=== PATIENT | female | born 1985 | race Caucasian/White ===

== ENCOUNTER 2021-06-25 10:13 | Outpatient (CLI) | payer BC ==
[2021-06-25] MEDS ORDERED: ALBU18HF INH (10:39)
[2021-06-25] MEDS ORDERED: [UNRECOGNIZED DRUG - CODE] PO (10:39)
[2021-06-25] MEDS ORDERED: MONT10TA6 PO (10:39)
[2021-06-25 11:15] LABS: MICROSCOPIC AUTO
[2021-06-25 11:22] LABS: BASOPHILS % (AUTO) 1 % (0-1); EOSINOPHILS % (AUTO) 7 % (1-7); LYMPHOCYTES % (AUTO) 23 % (22-44); MEAN CORPUSCULAR HEMOGLOBIN 31.4 pg (27.0-34.8); MEAN PLATELET VOLUME 7.6 fL (7.4-10.4); MONOCYTES % (AUTO) 6 % (2-9); NEUTROPHILS % (AUTO) 63 % (42-75); PLATELET COUNT 300 x10^3/uL (130-400); RED BLOOD COUNT 5.19 x10^6/uL (3.82-5.3); RED CELL DISTRIBUTION WIDTH 13.2 % (9.6-15.2)
[2021-06-25 11:33] LABS: CHLORIDE 108 mmol/L (98-107)
[2021-06-25 12:23] LABS: ALANINE AMINOTRANSFERASE 16 U/L (12-78); ALBUMIN 3.8 g/dL (3.4-5.0); ALKALINE PHOSPHATASE 79 U/L (45-117); ANION GAP 8 mmol/L (5-15); BILIRUBIN,TOTAL 0.8 mg/dL (0.2-1.0); CALCIUM 9.2 mg/dL (8.5-10.1); CREATININE 0.66 mg/dL (0.55-1.02); TOTAL PROTEIN 7.7 g/dL (6.4-8.2)
== END 2021-06-25 23:59 | disposition home or self-care (01) ==
LOC: STAR 10:13
PROVIDERS: ATTEND Obstetrics & Gynecology Gynecology
DX: Z01.818 Encounter for other preprocedural examination (principal)
CPT/HCPCS: 36415; 80053; 81001; 84702; 85025; 87077; 87086; 87186

== ENCOUNTER 2021-07-02 11:32 | Day surgery (SDC) | payer BC ==
[~2021-07-02] VITALS: Ht 158.8 cm; Wt 85.7 kg
[~2021-07-02 11:32] MED LIST: ALBU18HF INH; MONT10TA6 PO; [UNRECOGNIZED DRUG - CODE] PO
[2021-07-02 12:21] VITALS: BP 152/94
[2021-07-02] MEDS ORDERED: CHLORHEXIDINE 15 ML UDC ONE (12:25)
[2021-07-02 12:29] LABS: HCG UR SG 1.008 (1.003-1.030)
[2021-07-02] MEDS ORDERED: CHLORHEXIDINE 15 ML UDC PO ONE (12:30)
[2021-07-02] MEDS ORDERED: LACTATED RINGERS 1,000 ML IV SCH (12:30)
[2021-07-02] MEDS ORDERED: BUPIVACAINE/PF 0.25% ONE (12:46)
[2021-07-02] MEDS ORDERED: EPINEPHRINE 1 MG/ML, 1ML ONE (12:46)
[2021-07-02] MEDS ORDERED: SILVER NITRATE STICK TP ONE (12:46)
[2021-07-02] MEDS ORDERED: PROPOFOL 10 MG/ML, 20ML ONE (13:01)
[2021-07-02] MEDS ORDERED: SUCCINYLCHOLINE 20 MG/ML, 10ML ONE (13:02)
[2021-07-02] MEDS ORDERED: LIDOCAINE-MPF 2% ,5ML ONE (13:02)
[2021-07-02] MEDS ORDERED: ONDANSETRON 2MG/ML, 2ML ONE (13:20)
[2021-07-02] MEDS ORDERED: DEXAMETHASONE 4 MG/ML, 1ML ONE (13:20)
[2021-07-02] MEDS ORDERED: CEFAZOLIN 1,000 MG ONE (13:26)
[2021-07-02] MEDS ORDERED: FENTANYL PF 100 MCG/2ML ONE ×2 (13:32→14:12)
[2021-07-02] MEDS ORDERED: HYDROcodone/APAP 7.5-325MG/15ML UDC PO PRN (14:00)
[2021-07-02] MEDS ORDERED: ACETAMINOPHEN 325 MG TABLET PO PRN (14:00)
[2021-07-02] MEDS ORDERED: morphine SULFATE 10 MG/ML, 1ML IVPush PRN (14:00)
[2021-07-02] MEDS ORDERED: PROMETHAZINE 25 MG/ML, 1ML IVPush PRN (14:00)
[2021-07-02] MEDS ORDERED: PROMETHAZINE 25 MG/ML, 1ML ONE (14:12)
[2021-07-02] MEDS: FENTANYL PF 100 MCG/2ML IV PRN ×2 (14:17→14:33)
== END 2021-07-02 17:00 | disposition home or self-care (01) ==
LOC: OUT 11:32
PROVIDERS: ATTEND Obstetrics & Gynecology Gynecology
DX: Z30.2 Encounter for sterilization (principal); N83.12 Corpus luteum cyst of left ovary; N73.6 Female pelvic peritoneal adhesions (postinfective); J45.909 Unspecified asthma, uncomplicated; F32.9 Major depressive disorder, single episode, unspecified; Z79.899 Other long term (current) drug therapy; Z88.0 Allergy status to penicillin; Z88.1 Allergy status to other antibiotic agents; Z98.890 Other specified postprocedural states
CPT/HCPCS: 36415; 58670; 81025; 86850; 86900; 88302; J0171; J0330; J0690; J1100; J2405; J2550; J2704; J3010; J7120